=== PATIENT | female | born 1990 | race Caucasian/White ===

== ENCOUNTER 2023-11-30 10:06 | Emergency (ER) | payer OTHER ==
[~2023-11-30] VITALS: Ht 160 cm; Wt 70.0 kg
[2023-11-30 10:22] VITALS: O2SAT 98
[2023-11-30 12:18] LABS: CLARITY URINE CLOUDY (CLEAR); COLOR URINE YELLOW (YELLOW); GLUCOSE URINE NEGATIVE (NEGATIVE); KETONES URINE NEGATIVE (NEGATIVE); LEUKOCYTE ESTERASE URINE NEGATIVE (NEGATIVE); NITRITE URINE NEGATIVE (NEGATIVE); OCCULT BLOOD URINE NEGATIVE (NEGATIVE); PROTEIN URINE NEGATIVE (NEGATIVE); SPECIFIC GRAVITY URINE 1.019 (1.005-1.030)
[2023-11-30 12:36] LABS: BACTERIA URINE 2+; RBC URINE 0-2 /hpf (0-2); SQUAMOUS EPITHELIAL CELL URINE 3+ /lpf (RARE/1+); WBC URINE 0-2 /hpf (0-2); YEAST URINE RARE
[2023-11-30 13:26] VITALS: BP 112/62; PULSE 89; RESP 16; TEMP 36.72516; O2SAT 98
== END 2023-11-30 13:27 | disposition home or self-care (01) ==
LOC: ER 10:30
DX: O26.893 Other specified pregnancy related conditions, third trimester (principal); Z3A.28 28 weeks gestation of pregnancy
CPT/HCPCS: 76805; 81003; 99284